=== PATIENT | male | born 1940 | race Caucasian/White ===

== ENCOUNTER 2016-10-04 08:10 | Observation (INO) | payer MEDICARE, BC ==
--- NOTE | 2016-10-04 08:41 | Emergency Department Record ---
History of Present Illness - General Chief Complaint: Passed out Stated Complaint: BLACKED OUT/SWEATING Time Seen by Provider: 10/04/16 08:25 Source: Patient Mode of Arrival: Wheelchair Limitations: No limitations - History of Present Illness Initial Comments: The patient is here due to passing out at home. He has been having mild upper abdominal discomfort and did have a black stool this AM. He was sitting in a chair at home and began to feel lightheaded and then became pale, diaphoretic and passed out for less than a minute. There was no fall or trauma and he denied any CP, SOB, or DENIS. He woke up feeling lightheaded and was brought to the ER. Presently he denies any problems, pain, or weakness. MD Complaint: Loss of consciousness Onset/Timin -: Hour(s) Prodromal Symptoms: Diaphoresis, Lightheaded Injuries Sustained Associated with Event: None Current Symptoms: None Context: At rest Treatments Prior to Arrival: None - [place] Coma Scale Eye Response: (4) Open spontaneously Motor Response: (6) Obeys commands Verbal Response: (5) Oriented [place] Total: 15 - Related Data Home Medications Medication Instructions Recorded Confirmed Last Taken Amlodipine/Valsartan [Exforge 1 each PO DAILY 05/15/14 06/17/14 1 Day Ago 5-160 mg Tablet] ~03/16/16 1 tab Cholecalciferol (Vitamin D3) 5,000 unit PO DAILY 05/15/14 06/17/14 1 Day Ago [Vitamin D3] ~03/16/16 [place]-3 Fatty Acids/Fish Oil [Fish 1 each PO DAILY 05/15/14 06/17/14 03/17/16 Oil 1,000 mg Softgel] Verapamil HCl 80 mg PO QHS 10/04/16 10/04/16 10/03/16 Allergies Allergy/AdvReac Type Severity Reaction Status Date / Time esomeprazole magnesium Allergy SWELLING Verified 03/17/16 09:17 [From Nexium] OF THE LIPS sulfamethoxazole Allergy RASH Verified 03/17/16 09:17 [From Bactrim] trimethoprim [From Bactrim] Allergy RASH Verified 03/17/16 09:17 Travel Screening - Travel/Exposure Within Last 30 Days Have you traveled within the last 30 days?: No Review of Systems Constitutional: Denies: Chills, Fever Eyes: Denies: Eye discharge ENT: Denies: Congestion Respiratory: Denies: Cough, Dyspnea Past Medical History - SOCIAL HISTORY Smoking Status: Never smoker Alcohol Use: None Drug Use: None - RESPIRATORY Hx Respiratory Disorders: No - CARDIOVASCULAR Hx Cardio Disorders: Yes Hx Hypertension: Yes - NEURO Hx Neuro Disorders: No - GI Hx GI Disorders: Yes Hx Ulcer: Yes - Hx Genitourinary Disorders: No - ENDOCRINE Hx Endocrine Disorders: No - MUSCULOSKELETAL Hx Musculoskeletal Disorders: Yes Hx Arthritis: Yes - PSYCH Hx Psych Problems: No - HEMATOLOGY/ONCOLOGY Hx Hematology/Oncology Disorders: No Family Medical History Any Significant Family History?: Yes Hx Heart Disease: Mother Physical Exam - General General Appearance: Alert, Oriented x3, Cooperative, No acute distress - Head Head exam: Atraumatic, Normocephalic, Normal inspection - Eye Eye exam: Normal appearance, PERRL - ENT Throat exam: Normal inspection. negative: Tonsillar erythema, Tonsillar exudate - Neck Neck exam: Normal inspection, Full ROM. negative: Tenderness - Respiratory Respiratory exam: Normal lung sounds bilaterally. negative: Respiratory distress - Cardiovascular Cardiovascular Exam: Regular rate, Normal rhythm, Normal heart sounds - GI/Abdominal GI/Abdominal exam: Soft, Normal bowel sounds. negative: Tenderness - Rectal Rectal exam: Black stool, Heme (+) stool - Extremities Extremities exam: Normal inspection, Full ROM, Normal capillary refill. negative: Tenderness - Neurological Neurological exam: Alert, Normal gait. negative: Abnormal gait, Motor sensory deficit - Psychiatric Psychiatric exam: negative: Anxious, Depressed - Skin Skin exam: negative: Rash Course Vital Signs 10/04/16 08:11 Temperature 97.9 F Pulse Rate 51 L Respiratory 18 Rate Blood Pressure 127/82 Pulse Ox 95 - Reevaluation(s) Reevaluation #1: The patient is doing very well. I did explain lab work to the patient and the need for admission and he does agree. I also did discuss the case with Velvet ( JESU) and she does accept the admission. The patient is presently doing very well and denies any pain or discomfort. His BP has been very stable. 10/04/16 09:37 Medical Decision Making - Data Complexity MDM Data: Labs Ordered and/or Reviewed, EKG Ordered and/or Reviewed - Lab Data Result diagrams: 10/04/16 08:55 10/04/16 08:55 - EKG Data -: EKG Interpreted by Me EKG: No Acute Changes, Unchanged From Previous Disposition Disposition: Admit Clinical Impression: Upper GI bleed Disposition: Still a Patient at [facility] Decision to Admit: Admit from ER Decision to Admit Date: 10/04/16 Decision to Admit Time: 09:39 Accepting Physician: Raquel Time Discussed w/Accepting Physician: 09:39 Forms: Patient Portal Access Time of Disposition: 09:39
[2016-10-04] MEDS ORDERED: PANTOPRAZOLE SODIUM IV 40 MG VIAL IVP ONE (08:57)
[2016-10-04 09:02] LABS: BASO % 0.9 % (0-6); GRAN % 75.4 % (47-80); HEMATOCRIT 48.3 % (42.0-52.0); HEMOGLOBIN 14.8 gm/dl (14.0-18.0); LYMPH % 13.8 % (16-45); MEAN CELL VOLUME 100.2 fl (81-97); MEAN CORPUSCULAR HEMOGLOBIN 30.7 pg (27-33); MEAN CORPUSCULAR HGB CONC 30.6 g/dl (32-36); MEAN PLATELET VOLUME 11.3 fl (7.4-10.4); MONO % 4.9 % (0-9); PLATELET COUNT 192 K/uL (130-400); RED BLOOD COUNT 4.82 M/uL (4.40-5.70); RED CELL DISTRIBUTION WIDTH 12.8 % (11.5-14.5); WHITE BLOOD COUNT W/O DIFF 7.6 K/uL (4.2-12.2)
[2016-10-04 09:14] LABS: ANION GAP 3.9 (7-16); BLOOD UREA NITROGEN 40 mg/dL (9-20); CARBON DIOXIDE 31.1 mmol/L (22-30); CREATINE PHOSPHOKINASE 53 U/L (55-170); CREATININE 1.1 mg/dL (0.66-1.25); EST GLOMERULAR FILTRATION RATE > 60 ml/min; GLUCOSE,RANDOM 113 mg/dL (70-110); PARTIAL THROMBOPLASTIN TIME < 18.00 SECONDS (24.5-39.1); PROTHROMBIN TIME (PATIENT) 11.3 SECONDS (9.5-12.1)
[2016-10-04 09:26] LABS: CKMB 0.6 ug/L (0-6); TROPONIN I < 0.012 ng/mL (0.00-0.034)
[2016-10-04] MEDS ORDERED: 0.9 % SODIUM CHLORIDE 1,000 ML BAG IV ONE (09:39)
[2016-10-04] MEDS ORDERED: 0.9 % SODIUM CHLORIDE 1000ML 1,000 ML IV PRN ×2 (10:52→11:23)
[2016-10-04] MEDS ORDERED: ACETAMINOPHEN 500 MG TABLET PO PRN (10:52)
--- NOTE | 2016-10-04 11:15 | History & Physical ---
History of Present Illness - Date of Service Date of Service for History & Physical: 10/04/16 - History of Present Illness Admitting Diagnosis: 1. Upper Gi Bleed. History of Present Illness: 75yo male with CC of syncope and black stools. he has a history of HTN, PUD, arthritis and NSAID use. Patient presented to the ED this morning with CC of loss of consciousness. He had been having some nausea when he became hot, sweaty and passed out in his marianne. No fall or trauma. No previous history of syncope. His witnessed the event and says he was out for about a minute. did not have any post-ictal states. He did then have a BM that was black and tarry. He decided to come to the ED and son drove him. While in the ED, patient had stable vitals with HR of 51, bp of 127/82. He had EKG without ischemic changes and showed NSR. His first set of CE returned wnl. Coag panel showed normal PT and INR. His hgb was 14.8 with hct of 48.3. BUN elevated at 40 but Cr and eGFR wnl ranges. Rest of the cmp unremarkable. He did have a heme positive rectal exam and ED physician noted it to be melena. Patient was admitted for syncope 2/ to suspected upper GI bleed. 10/04/16- Patient states he is already feeling back to normal. He says he did not have any headache, dizziness, chest pain prior to or after the syncopal episode. He did not feel confused nor did he have any vision changes. He admits that for the few days leading up to this he had been having epigastric burning after every meal. He has history of ulcer and had an EGD done about 5-10 years ago. he has been taking alleve daily for arthritis pain. He has not history of prior syncopal events. no history of heart murmur or irregular rhythms. PCP: Gwen Travel Screening - Travel/Exposure Within Last 30 Days Have you traveled within the last 30 days?: No Review of Systems Constitutional: Denies: Chills, Fever Eyes: Denies: Eye discharge ENT: Denies: Congestion Respiratory: Denies: Cough, Dyspnea Cardiovascular: Reports: Syncope. Denies: Arrhythmia, Chest pain, Dyspnea on exertion, Edema, Murmurs, Orthopnea, Palpitations, Paroxysmal nocturnal dyspnea Gastrointestinal: Reports: Abdominal pain (epigastric burning), Melena, Nausea. Denies: Constipation, Diarrhea, Vomiting Musculoskeletal: Reports: Arthralgia Neurological: Denies: Confusion, Headache, Numbness, Paresthesias, Seizure, Tingling, Tremors, Weakness Hematological/Lymphatic: Denies: Blood Clots Past Medical History - SOCIAL HISTORY Smoking Status: Never smoker Alcohol Use: None Drug Use: None - RESPIRATORY Hx Respiratory Disorders: No - CARDIOVASCULAR Hx Cardio Disorders: Yes Hx Hypertension: Yes - NEURO Hx Neuro Disorders: No - GI Hx GI Disorders: Yes Hx Ulcer: Yes - Hx Genitourinary Disorders: No - ENDOCRINE Hx Endocrine Disorders: No - MUSCULOSKELETAL Hx Musculoskeletal Disorders: Yes Hx Arthritis: Yes - PSYCH Hx Psych Problems: No - HEMATOLOGY/ONCOLOGY Hx Hematology/Oncology Disorders: No Family Medical History Any Significant Family History?: Yes Hx Heart Disease: Mother H&P Meds/Allergies - Allergies Allergies: Allergies Allergy/AdvReac Type Severity Reaction Status Date / Time esomeprazole magnesium Allergy SWELLING Verified 03/17/16 09:17 [From Nexium] OF THE LIPS sulfamethoxazole Allergy RASH Verified 03/17/16 09:17 [From Bactrim] trimethoprim [From Bactrim] Allergy RASH Verified 03/17/16 09:17 - Home Medications Home Medications Medication Instructions Recorded Confirmed Last Taken Amlodipine/Valsartan [Exforge 1 each PO DAILY 05/15/14 06/17/14 1 Day Ago 5-160 mg Tablet] ~03/16/16 1 tab Cholecalciferol (Vitamin D3) 5,000 unit PO DAILY 05/15/14 06/17/14 1 Day Ago [Vitamin D3] ~03/16/16 [place]-3 Fatty Acids/Fish Oil [Fish 1 each PO DAILY 05/15/14 06/17/14 03/17/16 Oil 1,000 mg Softgel] Verapamil HCl 80 mg PO QHS 10/04/16 10/04/16 10/03/16 - Active Medications Active Medications: Current Medications Acetaminophen (Tylenol 500mg Tab) 500 mg PO Q6H PRN PRN Reason: PAIN/TEMP Sodium Chloride () 1,000 mls @ 100 mls/hr IV .Q10H PRN PRN Reason: LARGE VOLUME IV Pantoprazole Sodium (Protonix Iv) 40 mg IVP Q24H AILEEN Physical Exam - General General Appearance: Alert, Oriented x3, Cooperative, No acute distress, Other ( no pallor noted) Limitations: No limitations - Head Head exam: Atraumatic, Normocephalic, Normal inspection - Eye Eye exam: Normal appearance, PERRL - ENT Throat exam: Normal inspection. negative: Tonsillar erythema, Tonsillar exudate - Neck Neck exam: Normal inspection, Full ROM. negative: Tenderness - Respiratory Respiratory exam: Normal lung sounds bilaterally. negative: Respiratory distress - Cardiovascular Cardiovascular Exam: Regular rate, Normal rhythm, Normal heart sounds. negative : Diastolic murmur, Irregular rhythm, JVD, Systolic murmur - GI/Abdominal GI/Abdominal exam: Soft, Normal bowel sounds. negative: Distended, Guarding, Rebound, Rigid, Tenderness - Rectal Rectal exam: Black stool, Heme (+) stool - Extremities Extremities exam: Normal inspection, Full ROM, Normal capillary refill. negative: Tenderness - Neurological Neurological exam: Alert, Normal gait, Oriented X3, Reflexes normal. negative: Abnormal gait, Motor sensory deficit - Psychiatric Psychiatric exam: negative: Anxious, Depressed - Skin Skin exam: negative: Rash Results - Labs Result Diagrams: 10/04/16 08:55 10/04/16 08:55 VTE H&P Assessment - Risk for VTE Risk for VTE: Yes Risk Level: High Risk Assessment Date: 10/04/16 Risk Assessment Time: 11:10 VTE Orders Placed or Will Be Placed: Yes Plan - Detailed Diagnosis and Plan (1) Upper GI bleed Current Visit: Yes Status: Acute Base Code: K92.2 - GASTROINTESTINAL HEMORRHAGE, UNSPECIFIED Comment: 10/04/16- stable. Patient reports black tarry stool with heme positive black stool noted in ED. Has history of PUD and EGD about 5-10 years ago. Has never required blood transfusion. HAs been taking alleve daily for arthritis pain. -re-check hgb at 1600 and daily -stool occult re-checks ordered -start empiric ulcer treatment with carafate QID before meals and protonix 40mg IV BID -vitals q8H -will need outpatient GI follow up (2) Syncope Current Visit: Yes Status: Acute Base Code: R55 - SYNCOPE AND COLLAPSE Comment: 10/04/16- stable. Suspect Vasovagal syncope with prodrome of nausea, diaphoresis with dehyrdation being possible exacerbating factor (BUN 40). No post-ictal state. EKG showed normal sinus rhythm without ischemic changes. CE negative x1. -will continue serial enzymes -continue vitals q8H (3) Full code status Current Visit: Yes Status: Acute Base Code: Z78.9 - OTHER SPECIFIED HEALTH STATUS Comment: 10/04/16- patient is full code (4) DVT prophylaxis Current Visit: Yes Status: Acute Base Code: [id number] - Comment: 10/04/16- Patient is high risk for DVT with age and restricted mobility -lovenox contraindicated with GI bleed -will add SCD's and encourage ambulation as tolerating
[2016-10-04 13:17] LABS: STOOL FOR OCCULT BLOOD #1 POSITIVE (NEGATIVE)
[2016-10-04] MEDS ORDERED: LIDOCAINE 2% MDV (20MG/ML) 20ML VIAL IV ONE (14:00)
[2016-10-04] MEDS ORDERED: FENTANYL PF 100MCG/2ML VIAL IV ONE (14:00)
[2016-10-04] MEDS ORDERED: SUCCINYLCHOLINE 20 MG/ML 10ML IVP ONE (14:00)
[2016-10-04] MEDS ORDERED: PROPOFOL 10 MG/ML VIAL IV ONE (14:00)
[2016-10-04 16:46] LABS: HEMATOCRIT 41.7 % (42.0-52.0); HEMOGLOBIN 13.1 gm/dl (14.0-18.0)
[2016-10-04] MEDS: SUCRALFATE 1 G/10 ML UD PO SCH ×3 (17:15→21:47)
[2016-10-04] MEDS: PANTOPRAZOLE SODIUM IV 40 MG VIAL IVP SCH (21:59)
[2016-10-04 22:38] LABS: HEMATOCRIT 40.4 % (42.0-52.0)
[2016-10-05 04:36] LABS: HEMATOCRIT 39.2 % (42.0-52.0); HEMOGLOBIN 12.6 gm/dl (14.0-18.0)
[2016-10-05 04:42] LABS: ANION GAP 2.2 (7-16); BLOOD UREA NITROGEN 35 mg/dL (9-20); CARBON DIOXIDE 26.8 mmol/L (22-30); CREATININE 0.9 mg/dL (0.66-1.25); EST GLOMERULAR FILTRATION RATE > 60 ml/min; GLUCOSE,RANDOM 86 mg/dL (70-110)
[2016-10-05 04:45] LABS: BASO % 0.7 % (0-6); EOS % 1.6 % (0-6); GRAN % 74.8 % (47-80); HEMATOCRIT 39.6 % (42.0-52.0); HEMOGLOBIN 12.5 gm/dl (14.0-18.0); LYMPH % 13.9 % (16-45); MEAN CELL VOLUME 99.5 fl (81-97); MEAN CORPUSCULAR HEMOGLOBIN 31.4 pg (27-33); MEAN CORPUSCULAR HGB CONC 31.6 g/dl (32-36); MEAN PLATELET VOLUME 11.3 fl (7.4-10.4); PLATELET COUNT 163 K/uL (130-400); RED BLOOD COUNT 3.98 M/uL (4.40-5.70); RED CELL DISTRIBUTION WIDTH 12.7 % (11.5-14.5)
[2016-10-05] MEDS: PANTOPRAZOLE SODIUM IV 40 MG VIAL IVP SCH (08:47)
[2016-10-05] MEDS ORDERED: PANTOPRAZOLE SODIUM IV 40 MG VIAL IVP SCH (09:00)
[2016-10-05 10:06] LABS: HEMATOCRIT 41.1 % (42.0-52.0); HEMOGLOBIN 13.1 gm/dl (14.0-18.0)
[2016-10-05] MEDS: SUCRALFATE 1 G/10 ML UD PO SCH ×2 (10:09→14:49)
--- NOTE | 2016-10-05 10:39 | Discharge Summary ---
Providers Discharge Summary Date: 10/05/16 Date of admission: 10/04/16 10:23 Expected Date of Discharge: 10/05/16 Attending physician: ARACELI LONDON Primary care physician: MEKHI KELLEY D.O. Physical Exam - Vital Signs Vital Signs: Vital Signs - Last 24 Hrs Temp Pulse Resp BP Pulse Ox 10/05/16 08:29 98.7 F 74 18 157/91 95 10/05/16 04:28 98.4 F 69 18 139/83 96 10/05/16 00:57 97.7 F 80 18 147/78 94 L 10/04/16 20:00 98.5 F 92 H 20 146/85 96 10/04/16 17:00 60 16 160/95 95 10/04/16 16:45 97.6 F 60 16 172/76 96 10/04/16 16:30 55 L 16 167/95 95 10/04/16 16:15 97.9 F 62 16 168/87 95 10/04/16 12:52 98.6 F 86 16 146/80 96 10/04/16 12:19 15 - General General Appearance: Alert, Oriented x3, Cooperative, No acute distress, Other ( no pallor noted) Limitations: No limitations - Head Head exam: Atraumatic, Normocephalic, Normal inspection - Eye Eye exam: Normal appearance, PERRL - ENT Throat exam: Normal inspection. negative: Tonsillar erythema, Tonsillar exudate - Neck Neck exam: Normal inspection, Full ROM. negative: Tenderness - Respiratory Respiratory exam: Normal lung sounds bilaterally. negative: Respiratory distress - Cardiovascular Cardiovascular Exam: Regular rate, Normal rhythm, Normal heart sounds. negative : Diastolic murmur, Irregular rhythm, JVD, Systolic murmur - GI/Abdominal GI/Abdominal exam: Soft, Normal bowel sounds. negative: Distended, Guarding, Rebound, Rigid, Tenderness - Rectal Rectal exam: Black stool, Heme (+) stool - Extremities Extremities exam: Normal inspection, Full ROM, Normal capillary refill. negative: Tenderness - Neurological Neurological exam: Alert, Normal gait, Oriented X3, Reflexes normal. negative: Abnormal gait, Motor sensory deficit - Psychiatric Psychiatric exam: negative: Anxious, Depressed - Skin Skin exam: negative: Rash Hospitalization - Hospitalization Admission Diagnosis: 1. Upper Gi Bleed. - Problem List/Discharge Diagnosis (1) Upper GI bleed Current Visit: Yes Status: Acute Base Code: K92.2 - GASTROINTESTINAL HEMORRHAGE, UNSPECIFIED Comment: 10/05/16- Improved. Patient underwent EGD yesterday. No active bleed but large amount of dark blood requiring suction. Dr. Youngblood placed 2 hemoclips and epinephrine administered. Patient recovered from intubation in the PACU prior to returning to the floor. He did well through the evening with NPO and resolution of epigastric burning. Tolerated clear liquids this morning and some oatmeal this afternoon. HGB dropped from 14.8 to 12.5 following EGD but then stabilized at 12.6 and most recently up to 13.1 prior to discharge. -will plan to discharge home today with pcp follow up and GI follow up as outpatient. will need repeat EGD in 6-8 weeks. [facility]ty clinic has called and scheduled him for that already. -continue protonix 40mg po BID -continue carafate 1gm PO QIDAC for 10 days. -counseled on diet for ulcers x10 minutes. Will also give handout. discussed avoiding citrus, spicy, high fat containing foods, carbonated beverages and coffee. Most importantly avoiding all NSAIDs including alleve, motrin, ibuprofen. -Discussed reasons to return to the ED at any time including return of burning epigastric pain, return of black or bloody stools, shortness of breath, fatigue , chest pain. (2) Syncope Current Visit: Yes Status: Acute Discharge Diagnosis: Syncope type: vasovagal syncope Qualified Code(s): R55 - Syncope and collapse Base Code: R55 - SYNCOPE AND COLLAPSE Comment: 10/05/16- stable. Suspect Vasovagal syncope with prodrome of nausea, diaphoresis with dehyrdation vs. GI bleed being possible exacerbating factor (BUN 40). No post-ictal state. EKG showed normal sinus rhythm without ischemic changes. CE negative x3 -will have him follow up wt pcp as outpatient for further work up. Carotid ultrasound and echo can be completed in outpatient setting. (3) Full code status Current Visit: Yes Status: Acute Base Code: Z78.9 - OTHER SPECIFIED HEALTH STATUS Comment: 10/05/16- patient is full code (4) DVT prophylaxis Current Visit: Yes Status: Acute Base Code: [id number] - Comment: 10/05/16- Patient was high risk for DVT with age and restricted mobility, however, lovenox contraindicated with GI bleed. -Patient had SCD's while in bed and ambulation was encouraged - Hospitalization Course Disposition: Home, Self-Care Hospital Course: 75yo male with CC of syncope and black stools. he has a history of HTN, PUD, arthritis and NSAID use. Patient presented to the ED this morning with CC of loss of consciousness. He had been having some nausea when he became hot, sweaty and passed out in his marianne. No fall or trauma. No previous history of syncope. His witnessed the event and says he was out for about a minute. did not have any post-ictal states. He did then have a BM that was black and tarry. He decided to come to the ED and son drove him. While in the ED, patient had stable vitals with HR of 51, bp of 127/82. He had EKG without ischemic changes and showed NSR. His first set of CE returned wnl. Coag panel showed normal PT and INR. His hgb was 14.8 with hct of 48.3. BUN elevated at 40 but Cr and eGFR wnl ranges. Rest of the cmp unremarkable. He did have a heme positive rectal exam and ED physician noted it to be melena. Patient was admitted for syncope 06/07 to suspected upper GI bleed. 10/04/16- Patient states he is already feeling back to normal. He says he did not have any headache, dizziness, chest pain prior to or after the syncopal episode. He did not feel confused nor did he have any vision changes. He admits that for the few days leading up to this he had been having epigastric burning after every meal. He has history of ulcer and had an EGD done about 5-10 years ago. he has been taking alleve daily for arthritis pain. He has not history of prior syncopal events. no history of heart murmur or irregular rhythms. 10/05/16- Patient underwent EGD yesterday with Dr. Youngblood. EGD revealed no active bleed but large amount of dark blood present. he required intubation followed by suction, placement of 2 hemoclips and epinephrine administration. He recovered in PACU and did well. He has was made npo through the night and started on clear liquids this morning which he is tolerating very well. he reports 2 BM this morning. First stool was black, tarry and the second was still somewhat dark but returning to normal color and consistency. Patient denies any epigastric burning or pain. No nausea/vomiting. He would like to go home today. Abnormal Labs: Abnormal Lab Results 10/04/16 10/04/16 10/04/16 Range/Units 13:10 16:34 22:20 RBC (4.40-5.70) M/uL Hgb 13.1 L 13.0 L (14.0-18.0) gm/dl Hct 41.7 L 40.4 L (42.0-52.0) % MCV (81-97) fl MCHC (32-36) g/dl MPV (7.4-10.4) fl Lymphocytes % (16-45) % Chloride (98-107) mmol/L Anion Gap (7-16) BUN (9-20) mg/dL Calcium (8.5-10.1) mg/dL Stool Occult Blood Positive H (NEGATIVE) 10/05/16 10/05/16 10/05/16 Range/Units 04:15 04:15 04:15 RBC 3.98 L (4.40-5.70) M/uL Hgb 12.5 L 12.6 L (14.0-18.0) gm/dl Hct 39.6 L 39.2 L (42.0-52.0) % MCV 99.5 H (81-97) fl MCHC 31.6 L (32-36) g/dl MPV 11.3 H (7.4-10.4) fl Lymphocytes % 13.9 L (16-45) % Chloride 111 H (98-107) mmol/L Anion Gap 2.2 L (7-16) BUN 35 H (9-20) mg/dL Calcium 8.0 L (8.5-10.1) mg/dL Stool Occult Blood (NEGATIVE) 10/05/16 Range/Units 10:00 RBC (4.40-5.70) M/uL Hgb 13.1 L (14.0-18.0) gm/dl Hct 41.1 L (42.0-52.0) % MCV (81-97) fl MCHC (32-36) g/dl MPV (7.4-10.4) fl Lymphocytes % (16-45) % Chloride (98-107) mmol/L Anion Gap (7-16) BUN (9-20) mg/dL Calcium (8.5-10.1) mg/dL Stool Occult Blood (NEGATIVE) Condition at Discharge: (2) Stable Discharge Medications - Discharge Medications Prescriptions: Pantoprazole Sodium [Protonix] 40 mg PO BID #60 tab. Sucralfate [Carafate] 1 g PO QID #50 gm Home Medications: Ambulatory Orders Amlodipine/Valsartan [Exforge 5-160 mg Tablet] 1 each PO DAILY 05/15/14 [Last Taken 1 Day Ago ~03/16/16 1 tab] Cholecalciferol (Vitamin D3) [Vitamin D3] 5,000 unit PO DAILY 05/15/14 [Last Taken 1 Day Ago ~03/16/16] [place]-3 Fatty Acids/Fish Oil [Fish Oil 1,000 mg Softgel] 1 each PO DAILY [Last Taken 03/17/16] Verapamil HCl 80 mg PO QHS 10/04/16 [Last Taken Unknown] Pantoprazole Sodium [Protonix] 40 mg PO BID #60 tab. 10/05/16 [Last Taken Unknown] Sucralfate [Carafate] 1 g PO QID #50 gm 10/05/16 [Last Taken Unknown] Discharge Plan - Discharge Instructions Activity at Discharge: Resume Usual Activities As Tolerated Diet at Discharge: Advance to Usual Diet Instructions: Gastrointestinal Bleeding (DC), Rectal Bleeding (DC), Upper Endoscopy (GEN) Additional Instructions: See pre-printed discharge instructions given to patient. Scheduled for EGD , Upper Endoscopy on December 20, 2016 - Arrive here at [facility]ty clinic at 0730am for a 0830am procedure- Dr. Mcdaniels. Please call Dr. Kelley's office on Saturday to schedule a hospital follow up appointment Continue the protonix 40mg by mouth twice daily until you have your scope Continue the carafate 1gm prior to meals for a total of 10 days Return to the ED at any time if you have worsening or new symptoms including bloody or worsening black stools, chest pain, shortness of breath or fatigue.
--- NOTE | 2016-10-09 18:31 | Operative Note ---
DATE OF SURGERY: 10/04/2016 OPERATION: ESOPHAGOGASTRODUODENOSCOPY. PREOPERATIVE DIAGNOSIS: Melena, epigastric pain, and near-syncopal/syncopal episode. POSTOPERATIVE DIAGNOSIS: Antral ulcer with blood and clot in stomach without active bleeding noted. PROCEDURE: After informed consent was obtained from the patient and his , he was placed in the left lateral decubitus position in the endoscopy suite, sedated and monitored by the department of anesthesia. Once sedated, a well-lubricated [id number] gastroscope was placed in the posterior oropharynx and under direct visualization passed to the proximal, mid, and distal esophagus. There was no blood in the esophagus. Upon entering the proximal stomach, there was noted to be clot and old blood. As a result, the endoscope was removed from the patient and the patient was paralyzed and intubated by Anesthesia. Once endotracheal intubation had been established and ET tube had been secured, the endoscope was reinserted. The proximal gastric clot and debris was evacuated almost totally. There was black material throughout the gastric body and the antrum. The pylorus, duodenal bulb and sweep demonstrated some black material but no fresh or old blood was seen in this area. In the antrum, there was noted to be a moderately deep circular ulceration. It had somewhat of a friable appearance but there was no visible vessel identified. No active bleeding was noted. The fundus was unremarkable. The endoscope was advanced to the antrum and around the ulcer margin, a total of 4 mL of 1:10,000 epinephrine was injected in 1 mL aliquots. There was no bleeding noted. There was blanching of the tissue. Two hemoclips were applied to the ulcer bed. There was no persistent bleeding. The area was rinsed. Additional fluid and clot was evacuated from the fundus in the stomach. The endoscope removed from the patient. RECOMMENDATIONS: The patient will be monitored. He should be on a b.i.d. PPI. His hemoglobin should be monitored serially. He will need to be transfused. If he has recurrent bleeding, I would recommend he be transferred to [place]. As always, thank you for allowing me to participate in the healthcare of your patients. CC: JESU Steele
== END 2016-10-05 15:45 | disposition home or self-care (01) ==
LOC: MERGE 08:10 → ER 08:10 → MEDSURG 10:23
PROVIDERS: ADMIT Family Medicine; ATTEND Family Medicine
DX: K25.0 Acute gastric ulcer with hemorrhage (principal); R55 Syncope and collapse; Z78.9 Other specified health status; I10 Essential (primary) hypertension
CPT/HCPCS: 80048; 82272; 82550; 82553; 84484; 85014; 85018; 85025; 85610; 85730; 93005; 93010; 96361; 96374; 99217; 99220; 99285; C9113; J0330; J7030

== ENCOUNTER 2016-12-20 07:17 | Day surgery (SDC) | payer MEDICARE, BC ==
[2016-12-20] MEDS ORDERED: PROPOFOL 10 MG/ML VIAL IV ONE (14:00)
[2016-12-20] MEDS ORDERED: LIDOCAINE 2% MDV (20MG/ML) 20ML VIAL IV ONE (14:00)
[2016-12-20] MEDS ORDERED: FENTANYL PF 100MCG/2ML VIAL IV ONE (14:00)
--- NOTE | 2016-12-26 15:40 | Operative Note ---
DATE OF SURGERY: 12/20/2016 OPERATION: ESOPHAGOGASTRODUODENOSCOPY with biopsy and photo. PREOPERATIVE DIAGNOSIS: Gastric ulcer followup. POSTOPERATIVE DIAGNOSES: 1. Healing antral ulcer/faint erosion. 2. Mild proximal gastritis. PROCEDURE: After informed consent was obtained from the patient, he was placed in the left lateral decubitus position in the endoscopy suite, sedated and monitored by the department of anesthesia. Once sedated, a well-lubricated QRI101 gastroscope was placed in the posterior oropharynx and under direct visualization passed to the proximal esophagus. The endoscope was advanced through the proximal, mid, and distal esophagus. The esophagus and GE junction were unremarkable. The gastric body demonstrated normal distensibility. There were faint erythematous changes in the proximal stomach. The body was unremarkable. The antrum revealed a faint erosion at the area of the previous ulceration. There was no fresh or old blood seen. The pylorus, duodenal bulb, and sweep were unremarkable. J-turn views of the proximal stomach were unrevealing other than some faint erythema. The endoscope was straightened. Antral biopsies and distal body biopsies were obtained to rule out H pylori. The endoscope was removed from the patient with no new findings noted. RECOMMENDATIONS: I suggest the patient continue his current medications. As always, thank you for allowing me to participate in the healthcare of your patients. CC: Dr. Gwen CH
== END 2016-12-20 10:36 | disposition home or self-care (01) ==
LOC: HOP 07:17
PROVIDERS: ATTEND Internal Medicine Gastroenterology
DX: K25.9 Gastric ulcer, unspecified as acute or chronic, without hemorrhage or perforation (principal); K29.70 Gastritis, unspecified, without bleeding; I10 Essential (primary) hypertension

== ENCOUNTER 2017-11-16 09:45 | Emergency (ER) | payer MEDICARE, BC ==
--- NOTE | 2017-11-16 10:12 | Emergency Department Record ---
History of Present Illness - General Chief Complaint: Laceration(s) Stated Complaint: L THUMB LAC Time Seen by Provider: 11/16/17 10:04 Source: Patient Mode of Arrival: Ambulatory Limitations: No limitations - History of Present Illness Initial Commments: The patient is here due to injuring his L thumb 30 minutes ago. He was using a hand saw and accidentally caught it on his L thumb and pulled his thumb nail off. There is not lac to the skin and the blade did not go deep. His nail is still attached at the distal end but the proximal fold is avulsed. His Td is UTD. Onset/Timin -: Minutes(s) Place: Home Context: Accidental - Brandee Coma Scale Eye Response: (4) Open spontaneously Motor Response: (6) Obeys commands Verbal Response: (5) Oriented [place] Total: 15 - Related Data Hx Tetanus Toxoid Vaccination: Yes Year of Tetanus Vaccination: 2013 Patient Tetanus UTD (within 5 yrs): Yes Home Medications Medication Instructions Recorded Confirmed Last Taken Bisoprol/Hydrochlorothiazide 1 each PO DAILY 11/16/17 11/16/17 1 Day Ago [Bisoprolol-Hctz 5-6.25 mg Tab] ~11/15/17 Previous Rx's Medication Instructions Recorded Pantoprazole Sodium [Protonix] 40 mg PO BID #60 tab. 10/05/16 Sucralfate [Carafate] 1 g PO QID #50 gm 10/05/16 Cephalexin [Keflex] 500 mg PO TID #15 cap 11/16/17 Allergies Allergy/AdvReac Type Severity Reaction Status Date / Time esomeprazole magnesium Allergy SWELLING Verified 11/16/17 09:56 [From Nexium] OF THE LIPS sulfamethoxazole Allergy RASH Verified 11/16/17 09:56 [From Bactrim] trimethoprim [From Bactrim] Allergy RASH Verified 11/16/17 09:56 Travel Screening - Travel/Exposure Within Last 30 Days Have you traveled within the last 30 days?: No - Travel/Exposure Within Last Year Have you traveled outside the [place] in the last year?: No - Additonal Travel Details Have you been exposed to anyone with a communicable illness?: No - Travel Symptoms Symptom Screening: None Review of Systems Constitutional: Denies: Chills, Fever Eyes: Denies: Eye discharge ENT: Denies: Congestion, Ear pain Respiratory: Denies: Cough Past Medical History - SOCIAL HISTORY Smoking Status: Never smoker Alcohol Use: None Drug Use: None - RESPIRATORY Hx Respiratory Disorders: No - CARDIOVASCULAR Hx Cardio Disorders: Yes Hx Hypertension: Yes - NEURO Hx Neuro Disorders: No - GI Hx GI Disorders: Yes Hx Ulcer: Yes - Hx Genitourinary Disorders: No - ENDOCRINE Hx Endocrine Disorders: No - MUSCULOSKELETAL Hx Musculoskeletal Disorders: Yes Hx Arthritis: Yes Comment:: previous left knee replacement - PSYCH Hx Psych Problems: No - HEMATOLOGY/ONCOLOGY Hx Hematology/Oncology Disorders: No Family Medical History Any Significant Family History?: Yes Family Hx Comment (NOT TO BE USED IN PLACE OF ITEMS BELOW): parkinson's w/mom Hx Dementia: Father Physical Exam - General General Appearance: Alert, Oriented x3, Cooperative, No acute distress - Head Head exam: Atraumatic, Normocephalic - Eye Eye exam: Normal appearance, PERRL - Extremities Extremities exam: negative: Normal inspection (The proximal L thumb nail fold is avulsed. There is no skin lac and no bony tenderness. The L thumb DIP joint is nontender with normal flexion and extension.) Course Vital Signs 11/16/17 09:48 Temperature 98.5 F Pulse Rate 52 L Respiratory 20 Rate Blood Pressure 146/98 Pulse Ox 96 - Reevaluation(s) Reevaluation #1: Procedure note: The L thumb was anesth. with 3 cc's [place] 1% using a digital block technique. The nailbed was lavaged with sterile saline and prepped with betadine. There was no suturable nail bed lac. The thumb nail was then replaced in the nail fold and anchored in place with 2 4.0 nylon sutures. There were no complications. 11/16/17 10:42 Disposition Disposition: Discharge Clinical Impression: Injury of thumb, left Qualifiers: Encounter type: initial encounter Qualified Code(s): S69.92XA - Unspecified injury of left wrist, hand and finger(s), initial encounter Disposition: Home, Self-Care Condition: (2) Stable Instructions: Laceration (ED) Additional Instructions: Keep the tub gauze in place for 2 days and keep dry. Watch for signs of infection and take the Keflex as directed. Have the sutures removed in 7 days. Return to the ER for any problems. Prescriptions: Cephalexin [Keflex] 500 mg PO TID #15 cap Forms: Patient Portal Access Time of Disposition: 10:45 Quality - Quality Measures Quality Measures: N/A - Blood Pressure Screening View Details: Yes Does Patient Have Any of the Following: Active Dx of HTN Blood Pressure Classification: Hypertensive Reading Systolic Measurement: 140 Diastolic Measurement: 106 Screening for High Blood Pressure: Patient Exclusion, Hx of HTN [G9744]
[2017-11-16] MEDS ORDERED: LIDOCAINE 1% MPF 100MG/10ML STERILE-PAK AMPULE IV ONE (10:13)
== END 2017-11-16 10:52 | disposition home or self-care (01) ==
LOC: ER 09:45
DX: S61.102A Unspecified open wound of left thumb with damage to nail, initial encounter (principal); W27.0XXA Contact with workbench tool, initial encounter; Y92.009 Unspecified place in unspecified non-institutional (private) residence as the place of occurrence of the external cause; I10 Essential (primary) hypertension
CPT/HCPCS: 11760; 99283

== ENCOUNTER 2017-11-23 09:00 | Emergency (ER) | payer MEDICARE, BC ==
--- NOTE | 2017-11-23 09:12 | Emergency Department Record ---
History of Present Illness - General Chief Complaint: Suture removal Stated Complaint: SUTURE REMOVAL Time Seen by Provider: 11/23/17 09:08 Source: Patient Mode of arrival: Ambulatory Limitations: No limitations - History of Present Illness Initial Comments: 76 yo male presents to have the sutures removed from an avulsed nail that was placed for support and protection. No complaints with his healing. Complaint: Suture/staple removal Onset/Timin -: Week(s) Initial Visit For: Laceration Returns Today for: Staple/stitch removal Symptoms Since Prior Visit: No new symptoms, Improved Associated Symptoms: None - Related Data Previous Rx's Medication Instructions Recorded Pantoprazole Sodium [Protonix] 40 mg PO BID #60 tab. 10/05/16 Sucralfate [Carafate] 1 g PO QID #50 gm 10/05/16 Cephalexin [Keflex] 500 mg PO TID #15 cap 11/16/17 Allergies Allergy/AdvReac Type Severity Reaction Status Date / Time esomeprazole magnesium Allergy SWELLING Verified 11/23/17 09:04 [From Nexium] OF THE LIPS sulfamethoxazole Allergy RASH Verified 11/23/17 09:04 [From Bactrim] trimethoprim [From Bactrim] Allergy RASH Verified 11/23/17 09:04 Travel Screening - Travel/Exposure Within Last 30 Days Have you traveled within the last 30 days?: No - Travel/Exposure Within Last Year Have you traveled outside the [place] in the last year?: No - Additonal Travel Details Have you been exposed to anyone with a communicable illness?: No - Travel Symptoms Symptom Screening: None Review of Systems Constitutional: Denies: Chills, Fever, Weakness Eyes: Denies: Eye discharge ENT: Denies: Congestion, Throat pain Respiratory: Denies: Cough Cardiovascular: Denies: Chest pain Endocrine: Denies: Fatigue Gastrointestinal: Denies: Abdominal pain, Diarrhea, Nausea, Vomiting Genitourinary: Denies: Dysuria, Frequency Musculoskeletal: Denies: Arthralgia Skin: Denies: Bruising, Change in color, Rash Neurological: Denies: Numbness, Tingling Psychiatric: Denies: Anxiety Hematological/Lymphatic: Denies: Easy bleeding, Easy bruising Past Medical History - SOCIAL HISTORY Smoking Status: Never smoker Alcohol Use: None Drug Use: None - RESPIRATORY Hx Respiratory Disorders: No - CARDIOVASCULAR Hx Cardio Disorders: Yes Hx Hypertension: Yes - NEURO Hx Neuro Disorders: No - GI Hx GI Disorders: Yes Hx Ulcer: Yes - Hx Genitourinary Disorders: No - ENDOCRINE Hx Endocrine Disorders: No - MUSCULOSKELETAL Hx Musculoskeletal Disorders: Yes Hx Arthritis: Yes Comment:: previous left knee replacement - PSYCH Hx Psych Problems: No - HEMATOLOGY/ONCOLOGY Hx Hematology/Oncology Disorders: No Family Medical History Any Significant Family History?: Yes Family Hx Comment (NOT TO BE USED IN PLACE OF ITEMS BELOW): parkinson's w/mom Hx Dementia: Father Physical Exam - General General Appearance: Alert, Oriented x3, Cooperative, No acute distress Limitations: No limitations - Head Head exam: Atraumatic - Eye Eye exam: Normal appearance - ENT ENT exam: Normal exam Ear exam: Normal external inspection Nasal Exam: Normal inspection Mouth exam: Normal external inspection - Extremities Extremities exam: Normal inspection, Normal capillary refill. negative: Joint swelling - Neurological Neurological exam: Alert, Oriented X3 - Psychiatric Psychiatric exam: Normal affect, Normal mood - Skin Skin exam: Dry, Intact, Normal color, Warm Course Vital Signs 11/23/17 09:06 Temperature 97.7 F Pulse Rate 50 L Respiratory 18 Rate Blood Pressure 149/72 Pulse Ox 97 - Reevaluation(s) Reevaluation #1: 11/23/17 09:11 EMR reviewed The stay sutures were easily removed Disposition Disposition: Discharge Clinical Impression: Nail avulsion, Visit for suture removal Disposition: Home, Self-Care Condition: (1) Good Instructions: Stitches Removal (ED) Additional Instructions: Keep the thumb well protected Return if you have any concerns with the healing of the thumb Forms: Patient Portal Access Time of Disposition: 09:12 Quality - Quality Measures Quality Measures: N/A - Blood Pressure Screening Does Patient Have Any of the Following: Active Dx of HTN Blood Pressure Classification: Hypertensive Reading Systolic Measurement: 149 Diastolic Measurement: 72 Screening for High Blood Pressure: Patient Exclusion, Hx of HTN [G9744]
== END 2017-11-23 09:28 | disposition home or self-care (01) ==
LOC: ER 09:00
DX: Z48.02 Encounter for removal of sutures (principal)